=== PATIENT | female | born 1965 | race Caucasian/White ===

== ENCOUNTER → 2016-10-29 | Outpatient (REF) | payer MEDICARE, MEDICAID ==
[~2016-10-29] MED LIST: AMBI5TAB PO; AURASOL AD; BACT800T5 PO; CALCIUM PO; CEPA1LOZ5 MT; CETI10TA PO; COLA100C3 PO; FAMO20TA PO; GAS-80CH PO; LEVO25TA5 PO; LIDO4CRE2 TOP; MAGN400T2 PO; MIDOTAB PO; MILKSUS PO; MIRA3350 PO; NYST10PW TOP; PERC5TAB6 PO; PRIL20CA9 PO; PROZ40CA PO; SENN8.6C PO; TRAM50TA2 PO; TYLE325T5 PO; [UNRECOGNIZED DRUG - OTHER] PO; [UNRECOGNIZED DRUG - OTHER] PO
== END ==
LOC: M SFHCLERA 12:17
PROVIDERS: ATTEND Family Medicine
DX: N76.0 Acute vaginitis (principal); Z72.0 Tobacco use; F32.9 Major depressive disorder, single episode, unspecified; R03.0 Elevated blood-pressure reading, without diagnosis of hypertension; L98.499 Non-pressure chronic ulcer of skin of other sites with unspecified severity; L89.90 Pressure ulcer of unspecified site, unspecified stage; Q05.9 Spina bifida, unspecified; Z12.31 Encounter for screening mammogram for malignant neoplasm of breast

== ENCOUNTER → 2018-03-15 | Outpatient (REF) | payer MEDICARE, MEDICAID ==
[2018-03-15 14:13] LABS: BASO % 0.5 % (0.0-1.0); EOS # 0.3 10^3/uL (0.0-0.50); EOS % 5.4 % (0.0-3.0); HEMATOCRIT 37.2 % (36.0-47.0); HEMOGLOBIN 11.7 g/dl (12.0-15.5); IMMATURE GRANULOCYTE % 0.3 % (0-3.0); LYMPH # 1.9 10^3/uL (1.5-4.5); LYMPH % 32.2 % (24.0-44.0); MEAN CORPUSCULAR HEMOGLOBIN 26.1 pg (27.0-33.0); MEAN CORPUSCULAR HGB CONC 31.5 g/dl (32.0-36.5); MEAN CORPUSCULAR VOLUME 82.9 fl (80.0-96.0); MONO # 0.5 10^3/uL (0.0-0.8); MONO % 7.9 % (0.0-5.0); NEUTROPHILS # 3.2 10^3/uL (1.8-7.7); NEUTROPHILS % 53.7 % (36.0-66.0); PLATELET COUNT, AUTOMATED 330 10^3/uL (150-450); RED BLOOD COUNT 4.49 10^6/uL (4.00-5.40); RED CELL DISTRIBUTION WIDTH 16.1 % (11.5-14.5)
[2018-03-15 15:14] LABS: ALKALINE PHOSPHATASE 128 U/L (45-117); ALT/SGPT 18 U/L (12-78); ANION GAP 11 MEQ/L (8-16); AST/SGOT 21 U/L (7-37); BILIRUBIN,TOTAL 0.1 MG/DL (0.2-1.0); BLOOD UREA NITROGEN 16 MG/DL (7-18); C REACTIVE PROTEIN QUANTITATIV 1.45 MG/DL (0.00-0.30); CALCIUM LEVEL 8.6 MG/DL (8.5-10.1); CARBON DIOXIDE LEVEL 22 MEQ/L (21-32); CHLORIDE LEVEL 109 MEQ/L (98-107); CREATININE FOR GFR 0.19 MG/DL (0.55-1.30); GLOMERULAR FILTRATION RATE > 60.0 (>51); GLUCOSE, FASTING 76 MG/DL (70-100); SODIUM LEVEL 142 MEQ/L (136-145); TOTAL PROTEIN 7.3 GM/DL (6.4-8.2)
[2018-03-15 15:29] LABS: ERYTHROCYTE SEDIMENTATION RATE 69 mm/hr (0-30)
== END ==
LOC: M SFHCPLAZ 13:00
DX: M86.18 Other acute osteomyelitis, other site (principal)
CPT/HCPCS: 80053

== ENCOUNTER → 2019-06-14 | Outpatient (CLI) | payer MEDICARE, MEDICAID ==
[~2019-06-14] MED LIST changes: -CEPA1LOZ5 MT; +CEPALOZ8 MT; -COLA100C3 PO; +COLA100C5 PO; +MIDO1TAB5 PO; -MIDOTAB PO; +MILK120011 PO; -MILKSUS PO; +NYST-15 TOP; -NYST10PW TOP; +PERC5TAB12 PO; -PERC5TAB6 PO
--- NOTE | 2019-06-29 03:41 | ECWPNPC ---
PATIENT NAME: JAMES TUCKER : 1965 GENDER: FEMALE VISIT DATE: 06/14/2019 DISCHARGE DATE: 06/14/19 1314 VISIT LOCKED DATE TIME: PHYSICIAN: OBDULIO POLANCO RESOURCE: OBDULIO POLANCO REASON FOR APPOINTMENT 1. 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 WHEN DID YOUR PAIN FIRST START? . BRIEFLY DESCRIBE HOW YOUR PAIN STARTED? . HOW DOES YOUR PAIN CHANGE WITH TIME? . DOES YOUR PAIN AWAKEN YOU FROM SLEEP? . HOW MANY HOURS OF SLEEP DO YOU NORMALLY GET? . ANY DIAGNOSTIC TESTING? . FACILITY WHERE TESTS WERE DONE? ____. PAIN TREATMENT TREATMENT YES CANCER HAVE YOU EVER HAD ANY TYPE OF CANCER?NO NO. PAIN SCREENING: PATIENT HAS A COMPLAINT OF ACUTE OR CHRONIC PAIN :YES FALL RISK SCREENING: SCREENING : NO FALLS IN THE PAST YEAR. [facility] INVENTORY: QUESTIONNAIRE ASSESSEDTBD SCORE VALUE CALCULATED TBD CURRENT MEDICATIONS TAKING FAMOTIDINE 20 MG TABLET 1 TABLET AT BEDTIME ORALLY EVERY 12 HRS TAKING LEVOTHYROXINE SODIUM 75 MCG TABLET 1 TABLET ON AN EMPTY STOMACH IN THE MORNING ORALLY ONCE A DAY TAKING FLUOXETINE HCL - POWDER 1 CAPSULE 30 MG ORALLY ONCE A DAY TAKING PRO-STAT SUGAR FREE - LIQUID [id number]/30ML ORALLY 30ML BID TAKING REMERON 15 MG TABLET 1 TABLET AT BEDTIME ORALLY ONCE A DAY TAKING LORATADINE 10 MG TABLET 1 TABLET ORALLY ONCE A DAY TAKING SHOWER CHAIR WITHOUT WHEELS DIRECTED DAILY USE TAKING WHEELCHAIR - MISCELLANEOUS DIRECTED TAKING CALAMINE - LOTION EXTERNALLY TWICE A DAY TAKING HYDROPHILIC PETROLATUM - OINTMENT DIRECTED EXTERNALLY TWICE A DAY TAKING MELATONIN 3 MG TABLET 1 TABLET AT BEDTIME NEEDED ORALLY ONCE A DAY TAKING SELSUN BLUE DRY SCALP 1 % SHAMPOO [address] OF REGULAR SHAMPOO EXTERNALLY ONE TIME A WEEK TAKING SODIUM HYPOCHLORITE 5 % SOLUTION DIRECTED , NOTES: UNCERTAIN OF STRENGTH NOT-TAKING POTASSIUM CHLORIDE 10 MEQ/100ML SOLUTION ORALLY TWICE DAILY NOT-TAKING ROZEREM 8 MG TABLET 1 TABLET AT BEDTIME NEEDED ORALLY ONCE A DAY NOT-TAKING ASPIRIN EC 81 MG TABLET DELAYED RELEASE 1 TABLET ORALLY ONCE A DAY NOT-TAKING CULTURELLE - CAPSULE 1 CAP ORALLY DAILY NOT-TAKING TIZANIDINE HCL 2 MG TABLET 2 TABLETS NEEDED ORALLY BID NOT-TAKING TYLENOL 325 MG TABLET 2 TABLETS NEEDED ORALLY EVERY 4 HRS NOT-TAKING PNEUMOVAX 23 25 MCG/0.5ML INJECTABLE INJECTION NOT-TAKING GLUCAGON EMERGENCY 1 MG KIT INJECTION NOT-TAKING MILK OF MAGNESIA 400 MG/5ML SUSPENSION 5 ML NEEDED ORALLY 1 TIME PER DAY EVERY 2 DAYS MEDICATION LIST REVIEWED AND RECONCILED WITH THE PATIENT PAST MEDICAL HISTORY 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 DIFFICILE COLITIS 11/26/2017 AND 08/24/201712/2017 COCCYGEAL OSTEOMYELITIS TREATED WITH 6 WEEKS OF BY MOUTH CIPRO AND FLAGYL AND 1 WEEKOF CTX. 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 HOLE SHUNT CATHETER TUBING IS PRESENT WITHIN THE RIGHT LATERAL VENTRICLE CHIARI MALFORMATION NECK PAIN ALLERGIES BETADINE CODEINE PHOSPHATE (FOR ALLERGIES USE ONLY): DYSPNEA PENICILLIN (FOR ALLERGIES USE ONLY): INCREASE BP DOXYCYCLINE HYCLATE TAMIFLU: NAUSEA/VOMITING SURGICAL HISTORY SPINE SURGERY 1976 TOE AMPUTATION 1995 BILATERAL CARPAL TUNNEL SYNDROME 1998 COLOSTOMY AND UROSTOMY 1998 RIGHT HIP REMOVAL OF HARDWARE IND AND CHRONIC IV ANTIBIOTICS NOVEMBER OF 1999 AND SHUNT IN RIGHT SIDE OF HEAD GALLBLADDER APPENDIX HEEL CORD LENGTHENING SURGERY NERVE BOTH ELBOWS 02/2019 FAMILY HISTORY FATHER: ALIVE, DIAGNOSED WITH DIABETES, HYPERTENSION MOTHER: ALIVE SIBLINGS: ALIVE PATERNAL GRAND FATHER: PATERNAL GRAND MOTHER: MATERNAL GRAND FATHER: MATERNAL GRAND MOTHER: 3 BROTHER(S) - HEALTHY. YOUNGER BROTHER WITH PACEMAKER. SOCIAL HISTORY GENERAL: TOBACCO USE ARE YOU A:FORMER SMOKER HOW LONG HAS IT BEEN SINCE YOU LAST SMOKED?1-5 YEARS OTHERS AT HOME: YES - LIVES IN [place]. HOUSING: [place] RES[place]. EDUCATION LEVEL OF EDUCATION:HIGH SCHOOL DIET: REGULAR. LANGUAGE LANGUAGES SPOKEN:SETSWANA DOMESTIC VIOLENCE DO YOU FEEL SAFE IN YOUR ENVIRONMENT?YES RECREATIONAL DRUG USE DRUG USE?NO EXERCISE: NO REGULAR EXERCISE. LEARNING BARRIERS / SPECIAL NEEDS CHANGE FROM LAST VISIT?NO BARRIERS TO LEARNING?NO HEARING IMPAIRED?NO VISION IMPAIRED?YES :CORRECTIVE LENSES GLASSES COGNITIVELY IMPAIRED?NO READINESS TO LEARN?YES LEARNING PREFERENCES?NO LEARNING CAPABILITIES PRESENT?YES EMOTIONAL BARRIERS?NO DIFFICULTY WRITING. 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 NEEDED?NO LUNG CANCER SCREENING SMOKING STATUS:FORMER SMOKER PAIN CLINIC PFS, CLERGY, PUBLIC HEALTH REFERRALS HAS THE PATIENT BEEN EDUCATED REGARDING HIS/HER PLAN OF CARE?YES HAS THE PATIENT BEEN EDUCATED REGARDING PAIN, THE RISK FOR PAIN, THE IMPORTANCE OF EFFECTIVE PAIN MANAGEMENT, AND THE PAIN ASSESSMENT PROCESS?YES PFS REFERRAL NEEDED?NO CLERGY REFERRAL NEEDED?NO PUBLIC HEALTH REFERRAL NEEDED?NO WAS THE PROVIDER NOTIFIED OF ANY PERTINENT INFO?NO LATEX QUESTIONNAIRE LATEX ALLERGY : HAVE YOU EVER DEVELOPED ANY TYPE OF REACTION AFTER HANDLING LATEX PRODUCTS SUCH RUBBER GLOVES, CONDOMS, DIAPHRAGMS, BALLOONS, SOCKS, OR UNDERWEAR?NO LATEX ALLERGY : HAVE YOU EVER DEVELOPED ANY TYPE OF REACTION DURING OR AFTER DENTAL APPOINTMENT, VAGINAL/RECTAL EXAMINATION, SURGICAL PROCEDURE, OR ANY OTHER EXPOSURE?NO LATEX RISK : HAVE YOU EVER HAD ANY DIFFICULTY BREATHING OR HIVES AFTER EATING OR HANDLING ANY FRUITS, OR VEGETABLES; SUCH KIWI, BANANAS, STONE FRUITS, OR CHESTNUTSNO LATEX RISK : DO YOU HAVE A PREVIOUS PERSONAL HISTORY OF MORE THAN NINE SURGERIES, SPINA BIFIDA, OR REPEATED CATHERIZATIONS? YES - PLEASE INDICATE : > 9 SURGERIES, SPINE BIFIDA, REPEATED CATHETERIZATIONS LATEX RISK : ARE YOU FREQUENTLY EXPOSED TO LATEX PRODUCTS IN YOUR OCCUPATION?NO DATE ASKED : 06/14/2019 CAFFEINE CAFFEINE USE?YES HOW OFTEN AND HOW MUCH? DIET MOUNTAIN DEW - 2-3 BOTTLES 16.9 OZ. ADVANCE DIRECTIVE ADVANCE DIRECTIVE DISCUSSED WITH PATIENT:YES HAS HEALTH CARE PROXY AND DO NOT RESUSCITATE ORDER CHRISTIAN CHRISTIAN NO QUAKER BELIEFS THAT WOULD IMPACT HEALTH CARE. MARITAL STATUS: .. ALCOHOL SCREENING POINTS: 0, INTERPRETATION: NEGATIVE. OCCUPATION: DISABLED. HOSPITALIZATION/MAJOR DIAGNOSTIC PROCEDURE SURGERY RELATED INFECTIONS REVIEW OF SYSTEMS REVIEWED BY: PROVIDER: OBDULIO TSAI . CONSTITUTIONAL: ANY CHANGE IN YOUR MEDICAL CONDITION? NO . CHILLS NO . FEVER NO . INFECTION: DO YOU HAVE NEW INFECTIONS? NO . DO YOU HAVE HISTORY OF MRSA? NO; DOES HAVE A HISTORY OF C. DIFF . MUSCULOSKELETAL: ANY NEW PATTERNS OF PAIN OR NUMBNESS? NO . SYTEMIC LUPUS NO . GASTROENTEROLOGY: ANY NEW CHANGE IN BOWEL CONTROL? NO; HAS COLOSTOMY . BARRETTS ESOPHAGUS NO . CIRRHOSIS NO . HEPATITIS NO . LIVER FAILURE NO . ACID REFLUX YES . UNEXPLAINED WEIGHT LOSS NO . GENITOURINARY: ANY NEW CHANGE IN BLADDER CONTROL? NO; HAS UROSTOMY . IS THERE A CHANCE YOU COULD BE ? NO . HEMATOLOGY/LYMPH: DO YOU TAKE ANY BLOOD THINNERS? (FOR EXAMPLE- COUMADIN, PLAVIX, AGGRENOX, PLATEL, PRADAXA, OR XARELTO) NO . WHEN WAS YOUR LAST DOSE? DATE: TIME: . LOW PLATELET COUNT NO . SICKLE CELL DISEASE NO . VON WILLIEBRANDS NO . FACTOR V LEIDEN NO . THALLASEMIA NO . ANEMIA YES . EASY BRUISING NO . NEUROLOGY: HAVE YOU FALLEN IN THE PAST 12 MONTHS? NO . ANY NEW EXTREMITY NUMBNESS OR WEAKNESS? NO . HEAD INJURY NO . DEMENTIA NO . CEREBRAL PALSY NO . MULTIPLE SCLEROSIS YES . DIZZINESS NO . HEADACHE NO . STROKES NO . VERTIGO NO . CARDIOLOGY: DO YOU HAVE A PACEMAKER OR DEFIBRILLATOR? NO . ANGINA NO . HEART ATTACK NO . HEART SURGERY NO . CONGESTIVE HEART FAILURE/FLUID OVERLOAD NO . CHEST PAIN NO . HIGH BLOOD PRESSURE NO . IRREGULAR HEART BEAT NO . RESPIRATORY: HAVE YOU BEEN SICK IN THE PAST WEEK? NO . FEVER NO . FLU LIKE SYMPTOMS? NO . CPAP NO . BYPAP NO . ASTHMA NO . EMPHYSEMA NO . CHRONIC LUNG DISEASES NO . SHORTNESS OF BREATH ON EXERTION NO . DO YOU USE ANY TYPE OF TOBACCO (SMOKE, SMOKELESS, CHEW)? NO . COUGH NO . SNORING NO . INTEGUMENTARY: DO YOU HAVE ANY RASHES OR OPEN SORES? YES . ALLERGIC/IMMUNO: ARE YOU ALLERGIC TO IV DYE? NO . ANY NEW ALLERGIES? NO . PSYCHIATRIC: DO YOU HAVE THOUGHTS OF HURTING YOURSELF OR SOMEONE ELSE? NO . ARE YOU ABUSED, NEGLECTED, OR IN AN UNSAFE ENVIRONMENT? NO . ENDOCRINOLOGY: ARE YOU DIABETIC? NO . THYROID DISORDER YES . OTHER: DO YOU NEED ANY PRESCRIPTIONS? NO . IF YES, PLEASE LIST: ____ . ANY NEW PROBLEMS WITH YOUR MEDICATIONS? NO . WHEN DID YOU LAST EAT? ____ . WHEN DID YOU LAST DRINK? ____ . WHAT DID YOU LAST DRINK? ____ . NAME OF PERSON DRIVING YOU HOME? ____ . DO YOU HAVE ANY OTHER QUESTIONS OR CONCERNS NO . VITAL SIGNS WT 152.0 LBS, HT 52 IN, BMI 39.52 INDEX, BP 114/56 MM HG, HR 89 /MIN, RR 18 /MIN, TEMP 97.2 F, OXYGEN SAT % 96%, NA INITIALS AW 1121, REVIEWED BY: IVORY. EXAMINATION GENERAL EXAMINATION: GENERALNO ACUTE DISTRESS, WELL NOURISHED AND HYDRATED. PSYCHAPPROPRIATE MOOD AND AFFECT . HEENT:EOMI, NO SCLERAL ICTERUS, NARES PATENT, ORAL MUCOSA MOIST. FACE:UNREMARKABLE. NECK:NO LYMPHADENOPATHY, SUPPLE, NO THYROMEGALLY, NO JVD OR BRUITS. LUNGS:CLEAR TO AUSCULTATION BILATERALLY, NO WHEEZES, RHONCHI, RALES. HEART:NO MURMURS, REGULAR RATE AND RHYTHM. CERVICAL NEGATIVE FOR PAIN WITH PALPATION OF CERVICAL SPINE. NEGATIVE FOR PAIN WITH PALPATION OF CERVICAL PARASPINALS. NEGATIVE FOR PAIN WITH PALPATION OF TRAPEZIUS BILAT. DIAGNOSTIC TESTS REVIEWED MRI C SPINE-08/19/18. ASSESSMENTS CERVICAL SPINAL STENOSIS - M48.02 (PRIMARY) CERVICAL SPONDYLOSIS - M47.812 TREATMENT CERVICAL SPINAL STENOSIS NOTES: RECOMMEND INTERMITTENT USE OF PERCOCET 5/325 Q 4-6H PRN FOR ACUTE EPISODES OF CHRONIC NECK PAIN. PROCEDURE CODES FA211 ESTABILISHED PATIENT [facility] CHARGE DISPOSITION & COMMUNICATION FOLLOW UP 3 MONTHS (REASON: NECK PAIN MED MANAGEMENT) ELECTRONICALLY SIGNED BY QUIN CH ON 06/28/2019 AT 03:49 PM EST DISCLAIMER : THIS IS A VISIT SUMMARY EXTRACTED FROM THE [employer] CHART. IT IS NOT A COPY OF THE [employer] PROGRESS NOTE. TIFFANIE
== END ==
LOC: M PAIN 11:00
PROVIDERS: ATTEND Nurse Practitioner Family
DX: M48.02 Spinal stenosis, cervical region (principal); M47.812 Spondylosis without myelopathy or radiculopathy, cervical region; G89.29 Other chronic pain; Z86.59 Personal history of other mental and behavioral disorders; E03.9 Hypothyroidism, unspecified; Z87.891 Personal history of nicotine dependence; Z88.0 Allergy status to penicillin; Z88.1 Allergy status to other antibiotic agents; Z88.5 Allergy status to narcotic agent; Z88.8 Allergy status to other drugs, medicaments and biological substances; Z79.899 Other long term (current) drug therapy

== ENCOUNTER → 2019-09-13 | Outpatient (CLI) | payer MEDICARE, MEDICAID ==
--- NOTE | 2019-09-14 04:16 | ECWPNPC ---
PATIENT NAME: JAMES TUCKER : 1965 GENDER: FEMALE VISIT DATE: 09/13/2019 DISCHARGE DATE: 09/13/19 1411 VISIT LOCKED DATE TIME: PHYSICIAN: OBDULIO POLANCO RESOURCE: OBDULIO POLANCO REASON FOR APPOINTMENT 1. NECK/MED MNGMNT HISTORY OF PRESENT ILLNESS HISTORY OF PRESENT ILLNESS: HERE FOR FOLLOW-UP OF CHRONIC NECK PAIN. CONTINUES TO SUFFER FROM PERSISTENT NECK PAIN THAT RADIATES INTO BILATERAL UPPER BACK AND SHOULDERS. RATING PAIN INTENSITY A 6/10 VAS. DESCRIBES PAIN INTERMITTENT, SHOOTING AND SORE. USING PERCOCET 11/11/2024 PERIODICALLY FOR SEVERE PAIN EPISODES. SHE RESIDES AND ALLOW [facility]. ACCOMPANIED IN THE ROOM WITH AN AIDE. REVIEWED MRI OF THE CERVICAL SPINE AND DISCUSSED TREATMENT OPTIONS. CURRENTLY RECEIVING OCCIPITAL BLOCKS FOR HEADACHES, AT [facility]. CONTINUES TO SUFFER FROM PERSISTENT NECK AND UPPER BACK PAIN. PAIN THE PATIENT DESCRIBES THE PAIN... FALL RISK SCREENING: SCREENING :NO FALLS REPORTED IN THE LAST YEAR CURRENT MEDICATIONS TAKING FAMOTIDINE 20 MG TABLET 1 TABLET AT BEDTIME ORALLY EVERY 12 HRS TAKING LEVOTHYROXINE SODIUM 75 MCG TABLET 1 TABLET ON AN EMPTY STOMACH IN THE MORNING ORALLY ONCE A DAY TAKING FLUOXETINE HCL - POWDER 1 CAPSULE 30 MG ORALLY ONCE A DAY TAKING PRO-STAT SUGAR FREE - LIQUID [id number]/30ML ORALLY 30ML BID TAKING LORATADINE 10 MG TABLET 1 TABLET ORALLY ONCE A DAY TAKING SHOWER CHAIR WITHOUT WHEELS DIRECTED DAILY USE TAKING WHEELCHAIR - MISCELLANEOUS DIRECTED TAKING CALAMINE - LOTION EXTERNALLY TWICE A DAY, NOTES: NEEDED TAKING HYDROPHILIC PETROLATUM - OINTMENT DIRECTED EXTERNALLY TWICE A DAY TAKING MELATONIN 3 MG TABLET 1 TABLET AT BEDTIME NEEDED ORALLY ONCE A DAY TAKING SELSUN BLUE DRY SCALP 1 % SHAMPOO [address] OF REGULAR SHAMPOO EXTERNALLY ONE TIME A WEEK TAKING SODIUM HYPOCHLORITE 5 % SOLUTION DIRECTED , NOTES: UNCERTAIN OF STRENGTH TAKING MILK OF MAGNESIA 400 MG/5ML SUSPENSION 5 ML NEEDED ORALLY 1 TIME PER DAY EVERY 2 DAYS TAKING PERCOCET , NOTES: NEEDS TO ASK FOR IT OR FALLS OFF NOT-TAKING REMERON 15 MG TABLET 1 TABLET AT BEDTIME ORALLY ONCE A DAY NOT-TAKING POTASSIUM CHLORIDE 10 MEQ/100ML SOLUTION ORALLY TWICE DAILY NOT-TAKING ROZEREM 8 MG TABLET 1 TABLET AT BEDTIME NEEDED ORALLY ONCE A DAY NOT-TAKING ASPIRIN EC 81 MG TABLET DELAYED RELEASE 1 TABLET ORALLY ONCE A DAY NOT-TAKING CULTURELLE - CAPSULE 1 CAP ORALLY DAILY NOT-TAKING TIZANIDINE HCL 2 MG TABLET 2 TABLETS NEEDED ORALLY BID NOT-TAKING TYLENOL 325 MG TABLET 2 TABLETS NEEDED ORALLY EVERY 4 HRS NOT-TAKING PNEUMOVAX 23 25 MCG/0.5ML INJECTABLE INJECTION NOT-TAKING GLUCAGON EMERGENCY 1 MG KIT INJECTION MEDICATION LIST REVIEWED AND RECONCILED WITH THE PATIENT PAST MEDICAL HISTORY 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 DIFFICILE COLITIS 11/26/2017 AND 08/24/201712/2017 COCCYGEAL OSTEOMYELITIS TREATED WITH 6 WEEKS OF BY MOUTH CIPRO AND FLAGYL AND 1 WEEKOF CTX. 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 HOLE SHUNT CATHETER TUBING IS PRESENT WITHIN THE RIGHT LATERAL VENTRICLE CHIARI MALFORMATION NECK PAIN ALLERGIES BETADINE CODEINE PHOSPHATE (FOR ALLERGIES USE ONLY): DYSPNEA PENICILLIN (FOR ALLERGIES USE ONLY): INCREASE BP DOXYCYCLINE HYCLATE TAMIFLU: NAUSEA/VOMITING SURGICAL HISTORY SPINE SURGERY 1977 TOE AMPUTATION 1995 BILATERAL CARPAL TUNNEL SYNDROME 1998 COLOSTOMY AND UROSTOMY 1998 RIGHT HIP REMOVAL OF HARDWARE IND AND CHRONIC IV ANTIBIOTICS NOVEMBER OF 1999 AND SHUNT IN RIGHT SIDE OF HEAD GALLBLADDER APPENDIX HEEL CORD LENGTHENING SURGERY NERVE BOTH ELBOWS 02/2019 FAMILY HISTORY FATHER: ALIVE, DIAGNOSED WITH DIABETES, HYPERTENSION MOTHER: ALIVE SIBLINGS: ALIVE PATERNAL GRAND FATHER: PATERNAL GRAND MOTHER: MATERNAL GRAND FATHER: MATERNAL GRAND MOTHER: 3 BROTHER(S) - HEALTHY. YOUNGER BROTHER WITH PACEMAKER. SOCIAL HISTORY GENERAL: TOBACCO USE ARE YOU A:FORMER SMOKER HOW LONG HAS IT BEEN SINCE YOU LAST SMOKED?1-5 YEARS OTHERS AT HOME: YES - [place]ES [place]ING[place]. EDUCATION LEVEL OF EDUCATION:HIGH SCHOOL DIET: REGULAR. LANGUAGE LANGUAGES SPOKEN:SLOVENIAN DOMESTIC VIOLENCE DO YOU FEEL SAFE IN YOUR ENVIRONMENT?YES RECREATIONAL DRUG USE DRUG USE?NO EXERCISE: NO REGULAR EXERCISE. LEARNING BARRIERS / SPECIAL NEEDS CHANGE FROM LAST VISIT?NO BARRIERS TO LEARNING?NO HEARING IMPAIRED?NO VISION IMPAIRED?YES COGNITIVELY IMPAIRED?NO :CORRECTIVE LENSES GLASSES READINESS TO LEARN?YES LEARNING PREFERENCES?NO LEARNING CAPABILITIES PRESENT?YES EMOTIONAL BARRIERS?NO DIFFICULTY WRITING. SPECIAL DEVICES?YES :WHEELCHAIR FILTERER NEEDED?NO LUNG CANCER SCREENING SMOKING STATUS:FORMER SMOKER PAIN CLINIC PFS, CLERGY, PUBLIC HEALTH REFERRALS HAS THE PATIENT BEEN EDUCATED REGARDING HIS/HER PLAN OF CARE?YES HAS THE PATIENT BEEN EDUCATED REGARDING PAIN, THE RISK FOR PAIN, THE IMPORTANCE OF EFFECTIVE PAIN MANAGEMENT, AND THE PAIN ASSESSMENT PROCESS?YES LATEX QUESTIONNAIRE LATEX ALLERGY : HAVE YOU EVER DEVELOPED ANY TYPE OF REACTION AFTER HANDLING LATEX PRODUCTS SUCH RUBBER GLOVES, CONDOMS, DIAPHRAGMS, BALLOONS, SOCKS, OR UNDERWEAR?NO LATEX ALLERGY : HAVE YOU EVER DEVELOPED ANY TYPE OF REACTION DURING OR AFTER DENTAL APPOINTMENT, VAGINAL/RECTAL EXAMINATION, SURGICAL PROCEDURE, OR ANY OTHER EXPOSURE?NO DATE ASKED : 06/14/2019 LATEX RISK : HAVE YOU EVER HAD ANY DIFFICULTY BREATHING OR HIVES AFTER EATING OR HANDLING ANY FRUITS, OR VEGETABLES; SUCH KIWI, BANANAS, STONE FRUITS, OR CHESTNUTSNO LATEX RISK : DO YOU HAVE A PREVIOUS PERSONAL HISTORY OF MORE THAN NINE SURGERIES, SPINA BIFIDA, OR REPEATED CATHERIZATIONS? YES - PLEASE INDICATE : > 9 SURGERIES, SPINE BIFIDA, REPEATED CATHETERIZATIONS LATEX RISK : ARE YOU FREQUENTLY EXPOSED TO LATEX PRODUCTS IN YOUR OCCUPATION?NO CAFFEINE CAFFEINE USE?YES HOW OFTEN AND HOW MUCH? DIET MOUNTAIN DEW - 2-3 BOTTLES 16.9 OZ. ADVANCE DIRECTIVE ADVANCE DIRECTIVE DISCUSSED WITH PATIENT:YES HAS HEALTH CARE PROXY AND DO NOT RESUSCITATE ORDER [facility] NO MANDAEN BELIEFS THAT WOULD IMPACT HEALTH CARE. MARITAL STATUS: .. ALCOHOL SCREENING POINTS: 0, INTERPRETATION: NEGATIVE. OCCUPATION: DISABLED. HOSPITALIZATION/MAJOR DIAGNOSTIC PROCEDURE SURGERY RELATED INFECTIONS REVIEW OF SYSTEMS REVIEWED BY: PROVIDER: OBDULIO TSAI . CONSTITUTIONAL: ANY CHANGE IN YOUR MEDICAL CONDITION? NO . CHILLS NO . FEVER NO . INFECTION: DO YOU HAVE NEW INFECTIONS? NO . DO YOU HAVE HISTORY OF MRSA? NO . MUSCULOSKELETAL: ANY NEW PATTERNS OF PAIN OR NUMBNESS? NO . GASTROENTEROLOGY: ANY NEW CHANGE IN BOWEL CONTROL? NO . GENITOURINARY: ANY NEW CHANGE IN BLADDER CONTROL? NO . IS THERE A CHANCE YOU COULD BE ? NO . HEMATOLOGY/LYMPH: DO YOU TAKE ANY BLOOD THINNERS? (FOR EXAMPLE- COUMADIN, PLAVIX, AGGRENOX, PLATEL, PRADAXA, OR XARELTO) NO . WHEN WAS YOUR LAST DOSE? DATE: TIME: . NEUROLOGY: HAVE YOU FALLEN IN THE PAST 12 MONTHS? NO . ANY NEW EXTREMITY NUMBNESS OR WEAKNESS? NO . CARDIOLOGY: DO YOU HAVE A PACEMAKER OR DEFIBRILLATOR? NO . RESPIRATORY: HAVE YOU BEEN SICK IN THE PAST WEEK? NO . FEVER NO . FLU LIKE SYMPTOMS? NO . COUGH NO . INTEGUMENTARY: DO YOU HAVE ANY RASHES OR OPEN SORES? YES . ALLERGIC/IMMUNO: ARE YOU ALLERGIC TO IV DYE? NO . ANY NEW ALLERGIES? NO . PSYCHIATRIC: DO YOU HAVE THOUGHTS OF HURTING YOURSELF OR SOMEONE ELSE? NO . ARE YOU ABUSED, NEGLECTED, OR IN AN UNSAFE ENVIRONMENT? NO . ENDOCRINOLOGY: ARE YOU DIABETIC? NO . OTHER: DO YOU NEED ANY PRESCRIPTIONS? NO . IF YES, PLEASE LIST: ____ . ANY NEW PROBLEMS WITH YOUR MEDICATIONS? NO . WHEN DID YOU LAST EAT? ____ . WHEN DID YOU LAST DRINK? ____ . WHAT DID YOU LAST DRINK? ____ . NAME OF PERSON DRIVING YOU HOME? ____ . DO YOU HAVE ANY OTHER QUESTIONS OR CONCERNS NO . VITAL SIGNS WT 155 LBS, HT 52 IN, BMI 40.30 INDEX, BP 112/64 MM HG, HR 78 /MIN, RR 18 /MIN, TEMP 97.0 F, OXYGEN SAT % 98%, NA INITIALS MS 1313, REVIEWED BY: KG. EXAMINATION GENERAL EXAMINATION: LUNGS: LUNG SOUNDS ARE CLEAR . HEART: HEART RATE REGULAR . MUSCULOSKELETAL:*, MUSCLE STRENGTH TESTING 5/5 BILATERAL UPPER EXTREMITIES. . CERVICAL:+ FOR PAIN WITH PALPATION OF CERVICAL SPINE. + FOR PAIN WITH PALPATION OF CERVICAL PARASPINALS.SPECIFIC POINT TENDERNESS NOTED OV C4/5-/C5/6 CERVICAL FACETS WITH EXTENSION AND FACET LOADING.. DIAGNOSTIC TESTS REVIEWED CERVICAL MRI -01/25/2018. ASSESSMENTS CERVICAL SPONDYLOSIS - M47.812 (PRIMARY) TREATMENT CERVICAL SPONDYLOSIS REFILL PERCOCET, NOTES: NEEDS TO ASK FOR IT OR FALLS OFF NOTES: BILAT C4/5-C5/6 CFBTCONTINUE PERCOCET 5/325 Q6H PRN FOR SVERE PAIN EPISODES. PREVENTIVE MEDICINE PAIN CLINIC TEACHING: PROCEDURE TEACHING REVIEWED INFORMATION ON THERAPEUTIC CERVICAL FACET BLOCK PROCEDURE WITH PATIENT. ALSO REVIEWED PRE-PROCEDURE INSTRUCTIONS. PATIENT VERBALIZED AN UNDERSTANDING. ALEXANDER ORTIZ 09/13/2019 3:39:30 PM > . PROCEDURE CODES FA211 ESTABILISHED PATIENT [facility] CHARGE DISPOSITION & COMMUNICATION FOLLOW UP POST (REASON: BILAT C4/5-C5/6 CFBT) ELECTRONICALLY SIGNED BY QUIN CH ON 09/13/2019 AT 03:54 PM EST DISCLAIMER : THIS IS A VISIT SUMMARY EXTRACTED FROM THE [employer] CHART. IT IS NOT A COPY OF THE [employer] PROGRESS NOTE. TIFFANIE
== END ==
LOC: M PAIN 13:00
PROVIDERS: ATTEND Nurse Practitioner Family
DX: M47.812 Spondylosis without myelopathy or radiculopathy, cervical region (principal); G89.29 Other chronic pain; Q05.9 Spina bifida, unspecified; E03.9 Hypothyroidism, unspecified; Z86.19 Personal history of other infectious and parasitic diseases; Z87.891 Personal history of nicotine dependence; Z88.0 Allergy status to penicillin; Z88.1 Allergy status to other antibiotic agents; Z88.3 Allergy status to other anti-infective agents; Z88.5 Allergy status to narcotic agent; Z88.8 Allergy status to other drugs, medicaments and biological substances; E66.01 Morbid (severe) obesity due to excess calories; Z68.41 Body mass index [BMI] 40.0-44.9, adult; Z79.899 Other long term (current) drug therapy